=== PATIENT | male | born 1955 | race Caucasian/White ===

== ENCOUNTER 2021-05-15 03:57 | Inpatient (IN) | payer OTHER ==
[2021-05-15 05:13] LABS: ALT (SGPT) 9 U/L (8-55); AST (SGOT) 17 U/L (5-34); Albumin 3.2 g/dL (3.4-4.8); Alkaline Phosphatase 55 U/L (40-110); Anion Gap 12 mmol/L (10-20); BUN (Urea Nitrogen) 22 mg/dL (8.4-25.7); Bilirubin, Total 0.7 mg/dL (0.2-1.2); Calc. Creatinine Clearance 0 mL/min (70-130); Calcium 8.4 mg/dL (7.8-10.44); Carbon Dioxide 21 mmol/L (23-31); Chloride 105 mmol/L (98-107); Globulin 2.9 g/dL (2.4-3.5); Glucose 84 mg/dL (80-115); Protein, Total 6.1 g/dL (5.8-8.1); Sodium 134 mmol/L (136-145)
[2021-05-15 05:22] LABS: #Monocytes 0.3 10x3/uL (0.0-1.1); #Neutrophils 6.9 10x3/uL (1.5-8.4); %Basophils 0.3 % (0.0-2.0); %Eosinophils 0.5 % (0.0-6.0); %Lymphocytes 6.4 % (18.0-47.0); %Monocytes 3.7 % (0.0-10.0); %Neutrophils 88.6 % (40.0-75.0); Hemoglobin 8.5 g/dL (13.5-17.5); Mean Corpuscular HGB CONC 31.5 g/dL (32.0-36.0); Mean Corpuscular Volume 88.8 fl (81.2-95.1); Mean Platelet Volume 9.5 fl (7.4-10.4); Platelet Count 277 10x3/uL (150-450); Red Blood Cell (RBC) Count 3.04 10x6/uL (4.32-5.72); White Blood Cell (WBC) Count 7.8 10x3/uL (3.5-10.5)
[2021-05-15 05:37] LABS: CKMB 1.5 ng/mL (0-6.6)
[2021-05-15] MEDS ORDERED: Acetaminophen 500 MG TAB ONE (06:04)
[2021-05-15] MEDS ORDERED: VANCOMYCIN 2 GRAM/400 ML BAG 2 GM in Premix Bag 1 BAG IVPB SCH (06:15)
[2021-05-15] MEDS ORDERED: Cefepime 2 GM in Sodium Chloride 0.9% 100 ML IVPB ONE (06:15)
[2021-05-15 07:49] LABS: SARS-CoV-2 NAA Rapid Test Not Detected (NotDetected)
[2021-05-15] MEDS ORDERED: Guaifenesin DM 100-10/5 ML UDCUP PO PRN (08:53)
[2021-05-15] MEDS ORDERED: Ondansetron PF 4 MG/2 ML Vial IVP PRN (08:53)
[2021-05-15] MEDS ORDERED: Senokot S 8.6-50 MG TAB PO PRN (08:53)
[2021-05-15] MEDS ORDERED: Sodium Chloride 0.9% 1,000 ML IV SCH (09:15)
[2021-05-15] MEDS ORDERED: Fentanyl 100 MCG/2 ML VIAL ONE (09:18)
[2021-05-15] MEDS ORDERED: Norepinephrine 8 MG/0.9% NS 250 ML ONE (09:18)
[2021-05-15 10:31] LABS: Bilirubin Neg (Negative); Blood, Urine 10 (Negative); Clarity Clear (Clear); Glucose, Urine (Dipstick) Normal (Negative); Ketone, Urine Negative (Negative); Leukocyte Negative (Negative); Nitrite Negative (Negative); Protein, Urine (Dipstick) 15 mg/dl (Neg-Trace); Specific Gravity, Urine 1.015 (1.002-1.036); Urobilinogen Normal mg/dL (Less than 2)
[2021-05-15 10:51] LABS: Bacteria/HPF Rare-Few HPF (None Seen); RBC/HPF 0-3 HPF (0-3); Squamous Epithelial 0-3 HPF (0-3); WBC/HPF None Seen HPF (0-3)
[2021-05-15 11:44] VITALS: BMI 32.3
[2021-05-15] MEDS: HYDROcodone/Acetaminophen 5/325 mg Tablet PO PRN ×2 (12:55→17:15)
[2021-05-15] MEDS: Enoxaparin Sodium 40 MG/0.4 ML SYRINGE SC SCH (12:57)
[2021-05-15] MEDS: Famotidine/PF 20 mg/2ml Vial SLOW IVP SCH ×2 (12:57→20:32)
[2021-05-15] MEDS ORDERED: Albuterol Sulfate 2.5 mg/3 ml Neb NEB PRN (16:58)
[2021-05-15] MEDS: Vancomycin 1.5 GRAM/300 ML BAG 1.5 GM in Premix Bag 1 BAG IVPB SCH (17:14)
[2021-05-15 17:27] LABS: Actual Bicarbonate (HCO3a) 17.4 mEq/L (22-28); Base Excess (BEa) -6.7 mEq/L (-2.0 to +3.0); CO2 Tension 30.2 mmHg (35.0-45.0); Calcium, Ionized (arterial) 1.13 mmol/L (1.12-1.30); Carboxyhemoglobin (COHb) 0.3 gm% (0.0-3.0); Hemoglobin (Hb) 10.4 g/dL (14.0-18.0); O2 Tension (PaO2), arterial 169.4 mmHg (> 80.0); Potassium - ABG Lab 4.9 mmol/L (3.70-5.30); Puncture Site RRA; pH, Arterial 7.38 (7.35-7.45)
[2021-05-15] MEDS ORDERED: methylPREDNISolone Sod Succ/PF 125 MG/2 ML VIAL IVP SCH (17:30)
[2021-05-15] MEDS ORDERED: Furosemide 40 MG/4 ML VIAL SLOW IVP SCH (17:30)
[2021-05-15] MEDS ORDERED: Cefepime 1 GM in Sodium Chloride 0.9% 100 ML IVPB SCH (18:00)
[2021-05-15 18:20] LABS: Troponin I 0.155 ng/mL (< 0.028)
[2021-05-15] MEDS ORDERED: Norepinephrine 8 MG/0.9% NS 250 ML IVPB SCH (20:45)
[2021-05-16] MEDS: HYDROcodone/Acetaminophen 5/325 mg Tablet PO PRN ×2 (02:37→20:40)
[2021-05-16 04:48] LABS: Anion Gap 13 mmol/L (10-20); BUN (Urea Nitrogen) 24 mg/dL (8.4-25.7); Calc. Creatinine Clearance 100 mL/min (70-130); Carbon Dioxide 17 mmol/L (23-31); Chloride 105 mmol/L (98-107); Glucose 172 mg/dL (80-115); Potassium 4.1 mmol/L (3.5-5.1); Sodium 131 mmol/L (136-145)
[2021-05-16 05:16] LABS: Mean Corpuscular HGB CONC 32.6 g/dL (32.0-36.0); Mean Platelet Volume 10.4 fl (7.4-10.4); Platelet Count 270 10x3/uL (150-450); RBC Distribution Width 19.4 % (11.5-14.5); White Blood Cell (WBC) Count 26.4 10x3/uL (3.5-10.5)
[2021-05-16 07:26] LABS: MDiff Complete? YES
[2021-05-16 07:30] LABS: Band 6 % (5-11); Lymphocytes 2 % (21-51); Monocytes 4 % (0-10); Neutrophil 86 % (42-75); Reactive Lymphocytes 2 % (0-10)
[2021-05-16 07:32] LABS: Platelet Clumps SLIGHT; Toxic Granulation SLIGHT; Vacuoles SLIGHT
[2021-05-16] MEDS: Vancomycin 1.5 GRAM/300 ML BAG 1.5 GM in Premix Bag 1 BAG IVPB SCH ×2 (07:49→17:55)
[2021-05-16] MEDS: Cefepime 1 GM in Sodium Chloride 0.9% 100 ML IVPB SCH ×2 (07:49→17:55)
[2021-05-16] MEDS: Famotidine/PF 20 mg/2ml Vial SLOW IVP SCH ×2 (08:37→20:16)
[2021-05-16] MEDS: Enoxaparin Sodium 40 MG/0.4 ML SYRINGE SC SCH (08:37)
[2021-05-16 17:25] LABS: Vancomycin, Trough 22.1 ug/mL
[2021-05-17 03:27] LABS: Mean Corpuscular HGB CONC 32.3 g/dL (32.0-36.0); Mean Corpuscular Hemoglobin 28.6 pg (27.0-33.0); Mean Corpuscular Volume 88.6 fl (81.2-95.1); Mean Platelet Volume 10.3 fl (7.4-10.4); Platelet Count 227 10x3/uL (150-450); RBC Distribution Width 19.4 % (11.5-14.5); White Blood Cell (WBC) Count 24.1 10x3/uL (3.5-10.5)
[2021-05-17 03:46] LABS: Anion Gap 13 mmol/L (10-20); BUN (Urea Nitrogen) 25 mg/dL (8.4-25.7); CRP (Inflammatory) 22.21 mg/dL (= or < 0.5); Calc. Creatinine Clearance 131 mL/min (70-130); Calcium 8.4 mg/dL (7.8-10.44); Carbon Dioxide 19 mmol/L (23-31); Chloride 106 mmol/L (98-107); Glucose 160 mg/dL (80-115); Potassium 3.9 mmol/L (3.5-5.1); Sodium 134 mmol/L (136-145)
[2021-05-17 03:47] LABS: MDiff Complete? YES
[2021-05-17 03:50] LABS: Band 10 % (5-11); Lymphocytes 4 % (21-51); Metamyelocyte 2 % (0-0); Monocytes 5 % (0-10); Neutrophil 77 % (42-75); Reactive Lymphocytes 2 % (0-10)
[2021-05-17 03:51] LABS: Dohle Bodies SLIGHT; Platelet Morphology Comment Appears Adequate; RBC Morphology Normal
[2021-05-17] MEDS: Levothyroxine 150 MCG TAB PO SCH (05:46)
[2021-05-17] MEDS: Cefepime 1 GM in Sodium Chloride 0.9% 100 ML IVPB SCH ×2 (05:46→17:20)
[2021-05-17] MEDS: Enoxaparin Sodium 40 MG/0.4 ML SYRINGE SC SCH (08:34)
[2021-05-17] MEDS: VANCOMYCIN 1.25 GM/250 ML BAG 1.25 GM in Premix Bag 1 BAG IVPB SCH ×2 (08:34→22:24)
[2021-05-17] MEDS: Famotidine/PF 20 mg/2ml Vial SLOW IVP SCH ×2 (08:34→21:20)
[2021-05-17 10:37] LABS: Thyroid Stimulating Hormone 2.9277 uIU/mL (0.35-4.94)
[2021-05-17 15:16] LABS: T4 4.2 ug/dL (4.87-11.72)
[2021-05-17] MEDS: HYDROcodone/Acetaminophen 5/325 mg Tablet PO PRN (22:34)
[2021-05-18] MEDS: Acetaminophen 325 MG TAB PO PRN (03:01)
[2021-05-18] MEDS: Cefepime 1 GM in Sodium Chloride 0.9% 100 ML IVPB SCH ×2 (05:38→17:03)
[2021-05-18] MEDS: Levothyroxine 150 MCG TAB PO SCH (05:41)
[2021-05-18] MEDS: Enoxaparin Sodium 40 MG/0.4 ML SYRINGE SC SCH (08:39)
[2021-05-18] MEDS: VANCOMYCIN 1.25 GM/250 ML BAG 1.25 GM in Premix Bag 1 BAG IVPB SCH ×2 (08:39→22:00)
[2021-05-18] MEDS: Famotidine/PF 20 mg/2ml Vial SLOW IVP SCH ×2 (08:40→22:17)
[2021-05-18] MEDS ORDERED: Simethicone Chewable 80 MG TAB PO PRN (08:55)
[2021-05-18] MEDS ORDERED: Alendronate Sodium 70 mg Tablet PO SCH (09:00)
[2021-05-18] MEDS ORDERED: Furosemide 100 MG/10 ML VIAL SLOW IVP SCH (09:00)
[2021-05-18] MEDS ORDERED: LEVOTHYROXINE SODIUM 150 MCG PO SCH (09:00)
[2021-05-18 09:04] LABS: Vancomycin, Trough 18.8 ug/mL
[2021-05-18] MEDS: Aspirin 81 mg Enteric Coated Tablet PO SCH (09:32)
[2021-05-18] MEDS: Spironolactone 25 MG TAB PO SCH ×2 (09:32→22:16)
[2021-05-18] MEDS: Calcium Carbonate 600 MG + Vit D TAB PO SCH ×2 (09:32→22:16)
[2021-05-18] MEDS: Folic Acid 1 MG TAB PO SCH (09:32)
[2021-05-18] MEDS: Carvedilol 6.25 MG TAB PO SCH ×2 (09:32→22:16)
[2021-05-18] MEDS: Hydroxychloroquine Sulfate 200 MG TAB PO SCH (09:32)
[2021-05-18 09:41] LABS: #Basophils 0.1 10x3/uL (0.0-0.2); #Eosinphils 0.7 10x3/uL (0.0-0.5); %Basophils 0.4 % (0.0-2.0); %Eosinophils 5.3 % (0.0-6.0); %Lymphocytes 12.8 % (18.0-47.0); %Monocytes 7.4 % (0.0-10.0); %Neutrophils 71.2 % (40.0-75.0); Hemoglobin 8.1 g/dL (13.5-17.5); Mean Corpuscular HGB CONC 32.8 g/dL (32.0-36.0); Mean Corpuscular Hemoglobin 28.6 pg (27.0-33.0); Mean Corpuscular Volume 87.3 fl (81.2-95.1); Mean Platelet Volume 10.1 fl (7.4-10.4); Platelet Count 253 10x3/uL (150-450); RBC Distribution Width 19.1 % (11.5-14.5); Red Blood Cell (RBC) Count 2.83 10x6/uL (4.32-5.72)
[2021-05-18] MEDS: Furosemide 40 MG/4 ML VIAL SLOW IVP SCH (13:29)
[2021-05-18] MEDS ORDERED: ARIPIPRAZOLE 20 MG PO SCH (21:00)
[2021-05-18] MEDS: Terazosin HCl 5 MG CAP PO SCH (22:16)
[2021-05-18] MEDS: Aripiprazole 10 MG TAB PO SCH (22:20)
[2021-05-18 22:53] LABS: SARS-CoV-2 PCR by NAA Not Detected (NotDetected)
[2021-05-19] MEDS: Acetaminophen 325 MG TAB PO PRN (03:50)
[2021-05-19 05:18] LABS: Anion Gap 12 mmol/L (10-20); BUN (Urea Nitrogen) 25 mg/dL (8.4-25.7); CRP (Inflammatory) 11.31 mg/dL (= or < 0.5); Calc. Creatinine Clearance 134 mL/min (70-130); Calcium 8.5 mg/dL (7.8-10.44); Carbon Dioxide 25 mmol/L (23-31); Chloride 99 mmol/L (98-107); Glucose 109 mg/dL (80-115); Potassium 3.8 mmol/L (3.5-5.1); Sodium 132 mmol/L (136-145)
[2021-05-19 05:22] LABS: Mean Corpuscular HGB CONC 33.5 g/dL (32.0-36.0); Mean Corpuscular Hemoglobin 28.4 pg (27.0-33.0); Mean Corpuscular Volume 84.8 fl (81.2-95.1); Mean Platelet Volume 10.4 fl (7.4-10.4); Platelet Count 261 10x3/uL (150-450); RBC Distribution Width 18.7 % (11.5-14.5); Red Blood Cell (RBC) Count 2.82 10x6/uL (4.32-5.72); White Blood Cell (WBC) Count 11.9 10x3/uL (3.5-10.5)
[2021-05-19] MEDS: Levothyroxine 150 MCG TAB PO SCH (05:48)
[2021-05-19] MEDS: Cefepime 1 GM in Sodium Chloride 0.9% 100 ML IVPB SCH ×3 (05:48→17:58)
[2021-05-19] MEDS: Furosemide 40 MG/4 ML VIAL SLOW IVP SCH ×3 (05:48→17:58)
[2021-05-19 06:27] LABS: MDiff Complete? YES
[2021-05-19 06:30] LABS: Band 7 % (5-11); Eosinophils 8 % (0-10); Lymphocytes 15 % (21-51); Metamyelocyte 1 % (0-0); Monocytes 7 % (0-10); Myelocyte 2 % (0-0); Reactive Lymphocytes 4 % (0-10)
[2021-05-19 06:31] LABS: Neutrophil 56 % (42-75); Platelet Morphology Comment Appears Adequate
[2021-05-19 06:33] LABS: RBC Morphology Normal
[2021-05-19] MEDS: Enoxaparin Sodium 40 MG/0.4 ML SYRINGE SC SCH (08:31)
[2021-05-19] MEDS: Folic Acid 1 MG TAB PO SCH (08:32)
[2021-05-19] MEDS: Hydroxychloroquine Sulfate 200 MG TAB PO SCH (08:32)
[2021-05-19] MEDS: DULoxetine 30 MG CAP PO SCH (08:32)
[2021-05-19] MEDS: Famotidine/PF 20 mg/2ml Vial SLOW IVP SCH ×2 (08:32→21:08)
[2021-05-19] MEDS: VANCOMYCIN 1.25 GM/250 ML BAG 1.25 GM in Premix Bag 1 BAG IVPB SCH ×2 (08:32→21:08)
[2021-05-19] MEDS: Calcium Carbonate 600 MG + Vit D TAB PO SCH ×2 (08:33→21:08)
[2021-05-19] MEDS: Carvedilol 6.25 MG TAB PO SCH ×2 (08:33→09:50)
[2021-05-19] MEDS: Aspirin 81 mg Enteric Coated Tablet PO SCH (08:33)
[2021-05-19] MEDS: Spironolactone 25 MG TAB PO SCH ×3 (08:33→21:08)
[2021-05-19] MEDS ORDERED: Methotrexate Sodium 2.5 MG TAB PO SCH (14:00)
[2021-05-19] MEDS: Aripiprazole 10 MG TAB PO SCH (21:08)
[2021-05-19] MEDS: Terazosin HCl 5 MG CAP PO SCH (21:08)
[2021-05-20 05:33] LABS: Hemoglobin 7.9 g/dL (13.5-17.5); Mean Corpuscular HGB CONC 31.7 g/dL (32.0-36.0); Mean Corpuscular Hemoglobin 27.6 pg (27.0-33.0); Mean Corpuscular Volume 87.1 fl (81.2-95.1); Mean Platelet Volume 10.3 fl (7.4-10.4); Platelet Count 292 10x3/uL (150-450); RBC Distribution Width 18.7 % (11.5-14.5); Red Blood Cell (RBC) Count 2.86 10x6/uL (4.32-5.72); White Blood Cell (WBC) Count 10.7 10x3/uL (3.5-10.5)
[2021-05-20 05:43] LABS: Anion Gap 12 mmol/L (10-20); BUN (Urea Nitrogen) 25 mg/dL (8.4-25.7); CRP (Inflammatory) 15.93 mg/dL (= or < 0.5); Calc. Creatinine Clearance 157 mL/min (70-130); Calcium 8.6 mg/dL (7.8-10.44); Carbon Dioxide 24 mmol/L (23-31); Chloride 100 mmol/L (98-107); Glucose 112 mg/dL (80-115); Potassium 3.8 mmol/L (3.5-5.1); Sodium 132 mmol/L (136-145)
[2021-05-20] MEDS: Cefepime 1 GM in Sodium Chloride 0.9% 100 ML IVPB SCH ×2 (05:54→19:40)
[2021-05-20] MEDS: Levothyroxine 150 MCG TAB PO SCH (05:57)
[2021-05-20] MEDS: Furosemide 40 MG/4 ML VIAL SLOW IVP SCH (06:01)
[2021-05-20 06:39] LABS: MDiff Complete? YES; Manual Diff?? YES
[2021-05-20 06:43] LABS: Band 3 % (5-11); Eosinophils 3 % (0-10); Lymphocytes 19 % (21-51); Metamyelocyte 2 % (0-0); Monocytes 8 % (0-10); Myelocyte 1 % (0-0); Neutrophil 60 % (42-75); Reactive Lymphocytes 4 % (0-10)
[2021-05-20 06:44] LABS: Anisocytosis SLIGHT = 6-15 cells (100X) (0-5/hpf); Platelet Morphology Comment Appears Adequate
[2021-05-20 06:45] LABS: Elliptocytes SLIGHT = 2-5 cells (100X) (0-1/hpf); Hypochromia SLIGHT = 6-15 cells (100X) (0-5/hpf)
[2021-05-20] MEDS: Spironolactone 25 MG TAB PO SCH ×3 (09:24→16:00)
[2021-05-20] MEDS: DULoxetine 30 MG CAP PO SCH (09:24)
[2021-05-20] MEDS: Famotidine/PF 20 mg/2ml Vial SLOW IVP SCH ×2 (09:24→20:24)
[2021-05-20] MEDS: Hydroxychloroquine Sulfate 200 MG TAB PO SCH (09:24)
[2021-05-20] MEDS: VANCOMYCIN 1.25 GM/250 ML BAG 1.25 GM in Premix Bag 1 BAG IVPB SCH ×2 (09:25→20:23)
[2021-05-20] MEDS: Calcium Carbonate 600 MG + Vit D TAB PO SCH ×2 (09:25→20:24)
[2021-05-20] MEDS: Aspirin 81 mg Enteric Coated Tablet PO SCH (09:25)
[2021-05-20] MEDS: Folic Acid 1 MG TAB PO SCH (09:25)
[2021-05-20] MEDS: Enoxaparin Sodium 40 MG/0.4 ML SYRINGE SC SCH (09:25)
[2021-05-20] MEDS ORDERED: Potassium Chloride 20 MEQ TAB PO SCH (10:00)
[2021-05-20 10:02] LABS: Iron 16 ug/dL (65-175); Iron Binding Capacity, Total 295 mcg/dL (261-462); Magnesium 1.8 mg/dL (1.6-2.6)
[2021-05-20] MEDS ORDERED: Potassium Chloride 20 MEQ TAB ONE (11:19)
[2021-05-20] MEDS ORDERED: Iron Sucrose Complex 100 MG in Sodium Chloride 0.9% 100 ML IVPB SCH (12:45)
[2021-05-20] MEDS ORDERED: Methotrexate Sodium 2.5 MG TAB PO SCH (13:00)
[2021-05-20] MEDS ORDERED: Iron, Sodium Ferric Gluconate 125 MG in Sodium Chloride 0.9% 100 ML IVPB SCH (13:30)
[2021-05-20] MEDS: Furosemide 40 MG TAB PO SCH (13:37)
[2021-05-20] MEDS ORDERED: EPOETIN ALFA-EPBX (NON-ESRD) 10,000 UNIT/ML VIAL SC SCH (14:00)
[2021-05-20] MEDS: HYDROcodone/Acetaminophen 5/325 mg Tablet PO PRN (16:29)
[2021-05-20] MEDS: Aripiprazole 10 MG TAB PO SCH (20:24)
[2021-05-20] MEDS: Terazosin HCl 5 MG CAP PO SCH (20:28)
[2021-05-20 22:59] LABS: #Basophils 0.1 10x3/uL (0.0-0.2); #Eosinphils 0.7 10x3/uL (0.0-0.5); #Monocytes 1.7 10x3/uL (0.0-1.1); #Neutrophils 5.5 10x3/uL (1.5-8.4); %Basophils 0.6 % (0.0-2.0); %Eosinophils 6.2 % (0.0-6.0); %Lymphocytes 16.8 % (18.0-47.0); %Monocytes 15.1 % (0.0-10.0); %Neutrophils 49.1 % (40.0-75.0); Hemoglobin 8.5 g/dL (13.5-17.5); Mean Corpuscular Hemoglobin 28.1 pg (27.0-33.0); Mean Corpuscular Volume 88.1 fl (81.2-95.1); Mean Platelet Volume 9.6 fl (7.4-10.4); Platelet Count 313 10x3/uL (150-450); RBC Distribution Width 18.3 % (11.5-14.5); Red Blood Cell (RBC) Count 3.02 10x6/uL (4.32-5.72); White Blood Cell (WBC) Count 11.2 10x3/uL (3.5-10.5)
[2021-05-20 23:18] LABS: Band 1 % (5-11); Eosinophils 9 % (0-10); Lymphocytes 17 % (21-51); Metamyelocyte 1 % (0-0); Monocytes 12 % (0-10); Myelocyte 1 % (0-0); Neutrophil 48 % (42-75); Reactive Lymphocytes 7 % (0-10)
[2021-05-20 23:19] LABS: Large Platelets SLIGHT
[2021-05-20 23:20] LABS: Anisocytosis SLIGHT = 6-15 cells (100X) (0-5/hpf); Hypochromia SLIGHT = 6-15 cells (100X) (0-5/hpf); Macrocytosis SLIGHT = 6-15 cells (100X) (0-5/hpf); Microcytosis SLIGHT = 6-15 cells (100X) (0-5/hpf); Polychromasia SLIGHT = 2-3 cells (100X) (0-2/hpf)
[2021-05-21] MEDS: Levothyroxine 150 MCG TAB PO SCH (05:44)
[2021-05-21] MEDS: Cefepime 1 GM in Sodium Chloride 0.9% 100 ML IVPB SCH ×2 (05:44→18:36)
[2021-05-21 06:51] LABS: Anisocytosis SLIGHT = 6-15 cells (100X) (0-5/hpf); Band 5 % (5-11); Elliptocytes SLIGHT = 2-5 cells (100X) (0-1/hpf); Eosinophils 8 % (0-10); Hypochromia SLIGHT = 6-15 cells (100X) (0-5/hpf); Lymphocytes 12 % (21-51); MDiff Complete? YES; Macrocytosis SLIGHT = 6-15 cells (100X) (0-5/hpf); Mean Corpuscular HGB CONC 31.9 g/dL (32.0-36.0); Mean Corpuscular Volume 87.9 fl (81.2-95.1); Mean Platelet Volume 10.1 fl (7.4-10.4); Metamyelocyte 1 % (0-0); Microcytosis SLIGHT = 6-15 cells (100X) (0-5/hpf); Monocytes 17 % (0-10); Myelocyte 1 % (0-0); Neutrophil 50 % (42-75); Platelet Count 350 10x3/uL (150-450); Polychromasia SLIGHT = 2-3 cells (100X) (0-2/hpf); RBC Distribution Width 18.6 % (11.5-14.5); Reactive Lymphocytes 2 % (0-10); Red Blood Cell (RBC) Count 3.21 10x6/uL (4.32-5.72); Reflex for Review?? YES; White Blood Cell (WBC) Count 10.1 10x3/uL (3.5-10.5)
[2021-05-21 08:30] LABS: Vancomycin, Trough 19.2 ug/mL
[2021-05-21] MEDS: Folic Acid 1 MG TAB PO SCH (09:03)
[2021-05-21] MEDS: Hydroxychloroquine Sulfate 200 MG TAB PO SCH (09:03)
[2021-05-21] MEDS: Calcium Carbonate 600 MG + Vit D TAB PO SCH ×2 (09:03→21:14)
[2021-05-21] MEDS: Aspirin 81 mg Enteric Coated Tablet PO SCH (09:04)
[2021-05-21] MEDS: DULoxetine 30 MG CAP PO SCH (09:04)
[2021-05-21] MEDS: Enoxaparin Sodium 40 MG/0.4 ML SYRINGE SC SCH (09:04)
[2021-05-21] MEDS: Famotidine/PF 20 mg/2ml Vial SLOW IVP SCH ×2 (09:04→21:18)
[2021-05-21] MEDS: Furosemide 40 MG TAB PO SCH ×2 (09:04→15:42)
[2021-05-21] MEDS: Polyethylene Glycol 3350 17 GM Packet PO SCH (09:05)
[2021-05-21] MEDS: VANCOMYCIN 1.25 GM/250 ML BAG 1.25 GM in Premix Bag 1 BAG IVPB SCH (11:31)
[2021-05-21] MEDS: Spironolactone 25 MG TAB PO SCH (15:41)
[2021-05-21] MEDS: Terazosin HCl 5 MG CAP PO SCH (21:14)
[2021-05-21] MEDS: HYDROcodone/Acetaminophen 5/325 mg Tablet PO PRN (21:27)
[2021-05-21] MEDS: Aripiprazole 10 MG TAB PO SCH (21:28)
[2021-05-22] MEDS: Levothyroxine 150 MCG TAB PO SCH (05:55)
[2021-05-22] MEDS: Cefepime 1 GM in Sodium Chloride 0.9% 100 ML IVPB SCH (05:55)
[2021-05-22] MEDS: Famotidine/PF 20 mg/2ml Vial SLOW IVP SCH ×2 (10:14→21:07)
[2021-05-22] MEDS: Enoxaparin Sodium 40 MG/0.4 ML SYRINGE SC SCH (10:14)
[2021-05-22] MEDS: Folic Acid 1 MG TAB PO SCH (10:14)
[2021-05-22] MEDS: Furosemide 40 MG TAB PO SCH ×2 (10:14→15:29)
[2021-05-22] MEDS: Calcium Carbonate 600 MG + Vit D TAB PO SCH ×2 (10:14→21:07)
[2021-05-22] MEDS: Aspirin 81 mg Enteric Coated Tablet PO SCH (10:14)
[2021-05-22] MEDS: Hydroxychloroquine Sulfate 200 MG TAB PO SCH (10:14)
[2021-05-22] MEDS: Polyethylene Glycol 3350 17 GM Packet PO SCH (10:15)
[2021-05-22] MEDS: DULoxetine 30 MG CAP PO SCH (10:17)
[2021-05-22] MEDS: Cephalexin 500 MG CAP PO SCH ×2 (13:16→17:13)
[2021-05-22] MEDS: Spironolactone 25 MG TAB PO SCH (15:29)
[2021-05-22] MEDS: Aripiprazole 10 MG TAB PO SCH (21:07)
[2021-05-22] MEDS: Terazosin HCl 5 MG CAP PO SCH (21:08)
[2021-05-23] MEDS: Cephalexin 500 MG CAP PO SCH ×4 (00:03→17:34)
[2021-05-23 03:47] LABS: #Basophils 0.1 10x3/uL (0.0-0.2); #Eosinphils 0.5 10x3/uL (0.0-0.5); #Monocytes 0.7 10x3/uL (0.0-1.1); #Neutrophils 5.4 10x3/uL (1.5-8.4); %Basophils 0.7 % (0.0-2.0); %Eosinophils 5.5 % (0.0-6.0); %Lymphocytes 18.5 % (18.0-47.0); %Monocytes 7.5 % (0.0-10.0); %Neutrophils 61.9 % (40.0-75.0); Hemoglobin 8.9 g/dL (13.5-17.5); Mean Corpuscular HGB CONC 32.5 g/dL (32.0-36.0); Mean Corpuscular Hemoglobin 28.3 pg (27.0-33.0); Mean Platelet Volume 9.7 fl (7.4-10.4); Platelet Count 380 10x3/uL (150-450); RBC Distribution Width 18.9 % (11.5-14.5); Red Blood Cell (RBC) Count 3.15 10x6/uL (4.32-5.72); White Blood Cell (WBC) Count 8.7 10x3/uL (3.5-10.5)
[2021-05-23 03:55] LABS: Anion Gap 13 mmol/L (10-20); BUN (Urea Nitrogen) 28 mg/dL (8.4-25.7); CRP (Inflammatory) 13.89 mg/dL (= or < 0.5); Calc. Creatinine Clearance 141 mL/min (70-130); Calcium 8.5 mg/dL (7.8-10.44); Carbon Dioxide 23 mmol/L (23-31); Chloride 101 mmol/L (98-107); Glucose 105 mg/dL (80-115); Potassium 3.9 mmol/L (3.5-5.1); Sodium 133 mmol/L (136-145)
[2021-05-23 04:58] LABS: Band 3 % (5-11); Eosinophils 4 % (0-10); Lymphocytes 16 % (21-51); Metamyelocyte 2 % (0-0); Monocytes 3 % (0-10); Neutrophil 63 % (42-75); Reactive Lymphocytes 9 % (0-10)
[2021-05-23 05:00] LABS: Elliptocytes SLIGHT = 2-5 cells (100X) (0-1/hpf); Platelet Morphology Comment Appears Adequate
[2021-05-23] MEDS: Levothyroxine 150 MCG TAB PO SCH (06:10)
[2021-05-23] MEDS: Aspirin 81 mg Enteric Coated Tablet PO SCH (08:40)
[2021-05-23] MEDS: Hydroxychloroquine Sulfate 200 MG TAB PO SCH (08:40)
[2021-05-23] MEDS: Folic Acid 1 MG TAB PO SCH (08:40)
[2021-05-23] MEDS: Calcium Carbonate 600 MG + Vit D TAB PO SCH ×2 (08:40→21:05)
[2021-05-23] MEDS: Furosemide 40 MG TAB PO SCH ×2 (08:40→16:39)
[2021-05-23] MEDS: DULoxetine 30 MG CAP PO SCH (08:40)
[2021-05-23] MEDS: Enoxaparin Sodium 40 MG/0.4 ML SYRINGE SC SCH (08:41)
[2021-05-23] MEDS: Famotidine/PF 20 mg/2ml Vial SLOW IVP SCH ×2 (08:41→21:06)
[2021-05-23] MEDS: Polyethylene Glycol 3350 17 GM Packet PO SCH (08:42)
[2021-05-23] MEDS: Spironolactone 25 MG TAB PO SCH (16:40)
[2021-05-23] MEDS: Aripiprazole 10 MG TAB PO SCH (21:04)
[2021-05-23] MEDS: HYDROcodone/Acetaminophen 5/325 mg Tablet PO PRN (21:05)
[2021-05-23] MEDS: Terazosin HCl 5 MG CAP PO SCH (21:11)
[2021-05-24] MEDS: Cephalexin 500 MG CAP PO SCH ×2 (00:35→11:49)
[2021-05-24] MEDS ORDERED: Sodium Chloride 0.9% 500 ML IV SCH ×2 (01:00→04:30)
[2021-05-24] MEDS: Levothyroxine 150 MCG TAB PO SCH (07:01)
[2021-05-24] MEDS ORDERED: Lidocaine 1% (PF) 30 ML VIAL ONE ×3 (07:20→09:40)
[2021-05-24] MEDS ORDERED: Gentamicin 80 MG/2 ML VIAL ONE (07:20)
[2021-05-24] MEDS: Polyethylene Glycol 3350 17 GM Packet PO SCH (07:48)
[2021-05-24] MEDS ORDERED: Cepastat Lozenges 1 LOZ PO PRN (07:50)
[2021-05-24] MEDS ORDERED: Sodium Chloride 0.65% Nasal 44 ML BOT EA NARE PRN (07:50)
[2021-05-24] MEDS ORDERED: GUAIFENESIN SF SOLN 200 MG/10 ML UDCUP PO PRN (07:50)
[2021-05-24] MEDS ORDERED: Bisacodyl 10 MG SUPP PR PRN (07:50)
[2021-05-24] MEDS ORDERED: Calcium Carbonate 500 MG ChewTAB PO PRN (07:50)
[2021-05-24] MEDS ORDERED: Loratadine 10 MG TAB PO PRN (07:50)
[2021-05-24] MEDS ORDERED: Ondansetron ODT 4 MG TAB PO PRN (07:50)
[2021-05-24] MEDS ORDERED: hydrALAZINE 20 MG/ML VIAL SLOW IVP PRN (07:50)
[2021-05-24] MEDS ORDERED: Benzonatate 100 MG CAP PO PRN (07:50)
[2021-05-24] MEDS ORDERED: Loperamide HCl 2 MG CAP PO PRN (07:50)
[2021-05-24] MEDS ORDERED: Artificial Tear Sol 15 ML BOT EA EYE PRN (07:50)
[2021-05-24] MEDS ORDERED: Hydrocerin (Eucerin) Cream 120 gm Jar TOP PRN (07:50)
[2021-05-24] MEDS ORDERED: CEFAZOLIN 1 GM VIAL ONE (08:48)
[2021-05-24] MEDS ORDERED: Fentanyl 100 MCG/2 ML VIAL ONE (08:49)
[2021-05-24] MEDS ORDERED: Midazolam HCl 2 mg/2 ml Vial ONE (08:50)
[2021-05-24] MEDS: Sodium Chloride 0.9% 1,000 ML IV SCH (11:48)
[2021-05-24] MEDS: Hydroxychloroquine Sulfate 200 MG TAB PO SCH (12:10)
[2021-05-24] MEDS: Calcium Carbonate 600 MG + Vit D TAB PO SCH ×2 (12:11→20:58)
[2021-05-24] MEDS: Famotidine/PF 20 mg/2ml Vial SLOW IVP SCH ×2 (12:11→20:58)
[2021-05-24] MEDS: Aspirin 81 mg Enteric Coated Tablet PO SCH (12:11)
[2021-05-24] MEDS: Folic Acid 1 MG TAB PO SCH (12:11)
[2021-05-24] MEDS: DULoxetine 30 MG CAP PO SCH (12:17)
[2021-05-24] MEDS: Cephalexin 250 MG CAP PO SCH ×2 (14:36→20:58)
[2021-05-24] MEDS: Aripiprazole 10 MG TAB PO SCH (20:59)
[2021-05-25] MEDS: Sodium Chloride 0.9% 1,000 ML IV SCH (02:29)
[2021-05-25] MEDS: HYDROcodone/Acetaminophen 5/325 mg Tablet PO PRN (05:08)
[2021-05-25 06:20] LABS: Hemoglobin 7.7 g/dL (13.5-17.5); Mean Corpuscular HGB CONC 31.6 g/dL (32.0-36.0); Mean Corpuscular Hemoglobin 28.2 pg (27.0-33.0); Mean Corpuscular Volume 89.4 fl (81.2-95.1); Mean Platelet Volume 9.9 fl (7.4-10.4); Platelet Count 388 10x3/uL (150-450); RBC Distribution Width 18.6 % (11.5-14.5); Red Blood Cell (RBC) Count 2.73 10x6/uL (4.32-5.72); White Blood Cell (WBC) Count 7.9 10x3/uL (3.5-10.5)
[2021-05-25 06:29] LABS: Anion Gap 11 mmol/L (10-20); BUN (Urea Nitrogen) 20 mg/dL (8.4-25.7); Calc. Creatinine Clearance 159 mL/min (70-130); Calcium 8.3 mg/dL (7.8-10.44); Carbon Dioxide 22 mmol/L (23-31); Chloride 101 mmol/L (98-107); Glucose 95 mg/dL (80-115); Potassium 4.3 mmol/L (3.5-5.1); Sodium 130 mmol/L (136-145)
[2021-05-25] MEDS: Levothyroxine 150 MCG TAB PO SCH (06:59)
[2021-05-25] MEDS: Polyethylene Glycol 3350 17 GM Packet PO SCH (08:32)
[2021-05-25] MEDS: Hydroxychloroquine Sulfate 200 MG TAB PO SCH (08:33)
[2021-05-25] MEDS: Calcium Carbonate 600 MG + Vit D TAB PO SCH (08:33)
[2021-05-25] MEDS: Aspirin 81 mg Enteric Coated Tablet PO SCH (08:33)
[2021-05-25] MEDS: Folic Acid 1 MG TAB PO SCH (08:33)
[2021-05-25] MEDS: Famotidine/PF 20 mg/2ml Vial SLOW IVP SCH (08:33)
[2021-05-25] MEDS: Cephalexin 250 MG CAP PO SCH ×2 (08:33→16:56)
[2021-05-25] MEDS: DULoxetine 30 MG CAP PO SCH (08:33)
[2021-05-25] MEDS ORDERED: ETANERCEPT 50 MG/ML SC SCH (09:00)
[2021-05-25] MEDS ORDERED: Cholecalciferol (Vitamin D3) 400 UNITS TAB PO SCH (10:45)
[2021-05-25 18:53] VITALS: BP 131/74; TEMP 97.3
[2021-05-25 20:47] LABS: SARS-CoV-2 PCR by NAA Not Detected (NotDetected)
[2021-05-26] MEDS ORDERED: Cholecalciferol (Vitamin D3) 400 UNITS TAB PO SCH (09:00)
== END 2021-05-25 18:50 | DRG 853 ==
LOC: CSHERS 03:57 → CSHIMCU 10:50 → EEVIPCON 10:50 → CSHTELE 05-17 15:30
PROVIDERS: ADMIT Emergency Medicine; ATTEND Internal Medicine
PROC: 3E033XZ Introduction of Vasopressor into Peripheral Vein, Percutaneous Approach (ICD-10-PCS; 2021-05-15)
PROC: 02HV33Z Insertion of Infusion Device into Superior Vena Cava, Percutaneous Approach (ICD-10-PCS; 2021-05-15)
PROC: 30233N1 Transfusion of Nonautologous Red Blood Cells into Peripheral Vein, Percutaneous Approach (ICD-10-PCS; principal; 2021-05-20)
PROC: 0JH606Z Insertion of Pacemaker, Dual Chamber into Chest Subcutaneous Tissue and Fascia, Open Approach (ICD-10-PCS; 2021-05-24)
PROC: 02H63JZ Insertion of Pacemaker Lead into Right Atrium, Percutaneous Approach (ICD-10-PCS; 2021-05-24)
PROC: 02HK3JZ Insertion of Pacemaker Lead into Right Ventricle, Percutaneous Approach (ICD-10-PCS; 2021-05-24)
DX: A41.9 Sepsis, unspecified organism (principal); R65.21 Severe sepsis with septic shock; I21.4 Non-ST elevation (NSTEMI) myocardial infarction; J96.01 Acute respiratory failure with hypoxia; I50.33 Acute on chronic diastolic (congestive) heart failure; L03.115 Cellulitis of right lower limb; I48.20 Chronic atrial fibrillation, unspecified; Z20.822 Contact with and (suspected) exposure to COVID-19; E78.5 Hyperlipidemia, unspecified; E03.9 Hypothyroidism, unspecified; M06.9 Rheumatoid arthritis, unspecified; M81.0 Age-related osteoporosis without current pathological fracture; Z96.653 Presence of artificial knee joint, bilateral; I11.0 Hypertensive heart disease with heart failure; R00.1 Bradycardia, unspecified; F41.9 Anxiety disorder, unspecified; D50.9 Iron deficiency anemia, unspecified; F32.A Depression, unspecified; I44.1 Atrioventricular block, second degree; E55.9 Vitamin D deficiency, unspecified; E66.9 Obesity, unspecified; Z88.2 Allergy status to sulfonamides; Z88.8 Allergy status to other drugs, medicaments and biological substances; Z79.899 Other long term (current) drug therapy; Z79.82 Long term (current) use of aspirin; Z87.891 Personal history of nicotine dependence; Z68.32 Body mass index [BMI] 32.0-32.9, adult; Z79.890 Hormone replacement therapy
CPT/HCPCS: 0240U; 33208; 36415; 36416; 36430; 36600; 51701; 71045; 71275; 80048; 80053; 80202; 81003; 81015; 82306; 82553; 82728; 82805; 83540; 83550; 83605; 83735; 83880; 84145; 84436; 84443; 84484; 85007; 85025; 85027; 85060; 86140; 86850; 86900; 86901; 87040; 87086; 93005; 93010; 93306; 94640; 94760; 96365; 96375; 99152; 99153; C1785; C1898; J0690; J0692; J1580; J1650; J1940; J2001; J2250; J2916; J2930; J3010; J3370; J3490; J7030; J7050; J7611; J7620; J8610; P9016; Q5106; S0028; U0003; U0005